=== PATIENT | female | born 1950 ===

== ENCOUNTER 2022-05-12 22:37 | Emergency (ER) | payer SELFPAY ==
[2022-05-12 23:27] VITALS: BP 178/82
[2022-05-13 00:40] LABS: Basophils # (Auto) 0.1 K/mm3 (0.0-0.1); Basophils % (Auto) 1.2 % (0.0-1.8); Eosinophils # (Auto) 0.1 K/mm3 (0.0-0.4); Eosinophils % (Auto) 1.1 % (0.0-4.3); Hematocrit 44.3 % (30.3-42.9); Hemoglobin 15.5 gm/dl (10.1-14.3); Lymphocytes # (Auto) 1.4 K/mm3 (1.2-5.4); Mean Corpuscular HGB Conc 35 % (30-34); Mean Corpuscular Volume 96 fl (79-97); Monocytes % (Auto) 9.1 % (0.0-7.3); Platelet Count 284 K/mm3 (140-440); Red Cell Distribution Width 14.6 % (13.2-15.2)
[2022-05-13 00:58] LABS: BUN/Creatinine Ratio 14; Blood Urea Nitrogen 11 mg/dL (7-17); Calcium 10.6 mg/dL (8.4-10.2); Hemolysis Index 5
== END 2022-05-13 01:49 | disposition left against medical advice (07) ==
LOC: ED 22:37
DX: R31.9 Hematuria, unspecified (principal); R10.9 Unspecified abdominal pain; Z53.21 Procedure and treatment not carried out due to patient leaving prior to being seen by health care provider
CPT/HCPCS: 36415; 80048; 85025